=== PATIENT | female | born 1985 | race Hispanic/Latino ===

== ENCOUNTER 2017-10-15 21:12 | Emergency (ER) | payer MEDICAID ==
[2017-10-15 21:31] VITALS: BP 134/83
[2017-10-15] MEDS ORDERED: MOTRIN PO ONE (22:38)
--- NOTE | 2017-10-16 00:08 | XRay Report ---
FINAL REPORT EXAM: XR KNEE 1-2V RT HISTORY: Right knee pain TECHNIQUE: AP and lateral views of the right knee were submitted. FINDINGS: There is no evidence of fracture or soft tissue injury. IMPRESSION: Within normal limits.
--- NOTE | 2017-10-16 00:08 | XRay Report ---
FINAL REPORT EXAM: XR SHOULDER 2+V RT HISTORY: Right shoulder pain TECHNIQUE: Two views of the right shoulder were submitted. FINDINGS: There is no evidence of fracture or soft tissue injury. IMPRESSION: Within normal limits.
[2017-10-16] MEDS ORDERED: PERCOCET 5/325 ONE (00:09)
--- NOTE | 2017-10-16 00:09 | XRay Report ---
FINAL REPORT EXAM: XR FOOT 2V LT HISTORY: Left foot pain TECHNIQUE: AP and lateral views of the left foot were obtained. FINDINGS: There is soft tissue swelling overlying the dorsal aspect of the foot. There is no evidence of fracture or dislocation. IMPRESSION: Soft tissue swelling overlying the dorsal aspect of the foot. No fracture.
--- NOTE | 2017-10-16 00:10 | XRay Report ---
FINAL REPORT EXAM: XR FOREARM RT HISTORY: Right forearm pain TECHNIQUE: AP and lateral views of the right forearm were obtained. FINDINGS: There is an acute intra-articular fracture of the radial head with traumatic elbow joint effusion. No additional fractures are seen. The wrist joint is not show any acute changes. IMPRESSION: Acute nondisplaced intra-articular fracture of the radial head with traumatic joint effusion.
[2017-10-16] MEDS ORDERED: TYLENOL ONE (00:13)
[2017-10-16] MEDS ORDERED: FLEXERIL ONE (00:14)
[2017-10-16] MEDS ORDERED: TYLENOL PO ONE (00:22)
[2017-10-16] MEDS ORDERED: FLEXERIL PO ONE (00:22)
[2017-10-16] MEDS ORDERED: PERCOCET 5/325 PO ONE (00:22)
[2017-10-16] MEDS ORDERED: NORCO 10/325 ONE (01:10)
[2017-10-16] MEDS ORDERED: NORCO 10/325 PO ONE (01:12)
--- NOTE | 2017-10-16 02:15 | Emergency Department Report ---
ED Fall HPI - General Chief Complaint: Fall Stated Complaint: FALL R ARM PAIN Time Seen by Provider: 10/16/17 00:54 Source: patient Mode of arrival: Ambulatory - History of Present Illness MD Complaint: fall Onset/Timin -: hour(s) Fall From: from height (distance) (4) When Fall Occurred: 4-6 hours NURSING HOME DIRECTOR Fall Witnessed: yes, by family Place Fall Occurred: street Loss of Consciousness: none Prolonged Down Time?: no Symptoms Prior to Fall: none Location - Extremities: Right: Elbow, Knee, Ankle Severity: moderate Severity scale (0 -10): 5 Quality: sharp, aching Context: other (fell from roof of car ) Associated Symptoms: denies: headache, neck pain, numbness, weakness, chest paint, shortness of breath, abdominal pain, hematuria, unable to walk, vertigo, confusion - Related Data Previous Rx's Medication Instructions Recorded Last Taken Type traMADol [Ultram 50 MG tab] 50 mg PO Q8HR PRN #15 tablet 10/16/17 Unknown Rx Allergies Allergy/AdvReac Type Severity Reaction Status Date / Time morphine AdvReac Headache Verified 10/15/17 22:56 ED Review of Systems ROS: Stated complaint: FALL R ARM PAIN Other details as noted in HPI Constitutional: denies: chills, fever Eyes: denies: eye pain, eye discharge, vision change ENT: denies: ear pain, throat pain Respiratory: denies: cough, shortness of breath, wheezing Cardiovascular: denies: chest pain, palpitations Endocrine: no symptoms reported Gastrointestinal: denies: abdominal pain, nausea, diarrhea Genitourinary: denies: urgency, dysuria, discharge Musculoskeletal: arthralgia, myalgia Skin: denies: rash, lesions Neurological: denies: headache, weakness, paresthesias Psychiatric: denies: anxiety, depression Hematological/Lymphatic: denies: easy bleeding, easy bruising ED Past Medical Hx - Past Medical History Previous Medical History?: No - Surgical History Hx Cholecystectomy: Yes Additional Surgical History: Tonsiliectomy - Social History Smoking Status: Never Smoker Substance Use Type: None - Medications Home Medications: Home Medications Medication Instructions Recorded Confirmed Last Taken Type traMADol [Ultram 50 MG tab] 50 mg PO Q8HR PRN #15 tablet 10/16/17 Unknown Rx ED Physical Exam - General Limitations: No Limitations General appearance: alert, in no apparent distress - Head Head exam: Present: atraumatic, normocephalic, normal inspection - Eye Eye exam: Present: normal appearance, PERRL, EOMI Pupils: Present: normal accommodation - ENT ENT exam: Present: normal exam, mucous membranes moist - Neck Neck exam: Present: normal inspection, full ROM. Absent: tenderness, thyromegaly - Respiratory Respiratory exam: Present: normal lung sounds bilaterally. Absent: respiratory distress, wheezes, rhonchi, chest wall tenderness - Cardiovascular Cardiovascular Exam: Present: regular rate, normal rhythm, normal heart sounds. Absent: systolic murmur, diastolic murmur, rubs, gallop - GI/Abdominal GI/Abdominal exam: Present: soft, normal bowel sounds. Absent: distended, tenderness, guarding, rebound, rigid, organomegaly, mass, bruit, pulsatile mass , hernia - Rectal Rectal exam: Present: deferred - Extremities Exam Extremities exam: Present: tenderness, normal capillary refill. Absent: pedal edema, joint swelling, calf tenderness - Expanded Upper Extremity Exam Right Elbow exam: Present: tenderness, pain w/ pronation/supination, tenderness over radial head. Absent: swelling, abrasion, laceration, ecchymosis, deformity, crepidus, dislocation, erythema, effusion Forearm Wrist exam: Present: normal inspection, full ROM Hand Wrist exam: Present: normal inspection, full ROM. Absent: tenderness, swelling, abrasion, laceration, ecchymosis, deformity, crepidus, dislocation, erythema, amputation, nail avulsion, subungual hematoma Neuro motor exam: Present: wrist extension intact, thumb opposition intact, thumb IP flexion intact, thumb adduction intact, fingers 2-5 abduction intact Neurosensory exam: Present: 2-point discrimination, radial nerve intact, ulnar nerve intact, median nerve intact Vascular: Present: normal capillary refill, radial pulse, brachial pulse, ulnar pulse. Absent: vascular compromise, Pallo, pulse deficit radial art, pulse deficit ulnar art, pulse deficit brachial art - Expanded Lower Extremity Exam Right Knee exam: Present: normal inspection, full ROM, abrasion (right anterior lateral knee abrasion less than 1 cm ), full knee extension. Absent: tenderness , swelling, laceration, ecchymosis, deformity, crepidus, dislocation, erythema, effusion, pain w/ pronation/supination, posterior draw sign, pain/laxity with varus Lower Leg exam: Present: normal inspection, full ROM. Absent: tenderness, swelling, abrasion, laceration, ecchymosis, deformity, crepidus, dislocation, erythema, palpable cord, Marbella's sign Ankle exam: Present: normal inspection, full ROM. Absent: tenderness, swelling , abrasion, laceration, ecchymosis, deformity, crepidus, dislocation, erythema, anterior draw sign Foot/Toe exam: Present: normal inspection, full ROM, swelling (chronic bilat LE edema no ecchymosis no deformity ). Absent: tenderness, abrasion, laceration, ecchymosis, deformity, crepidus, dislocation, erythema, amputation, puncture wound, foreign body, calcaneal tenderness, tenderness at base of 5th metatarsal , nail avulsion, subungual hematoma Neuro vascular tendon exam: Present: no vascular compromise. Absent: pulse deficit, motor deficit, sensory deficit, tendon deficit, extremity cold to touch ED Course Vital Signs 10/15/17 10/15/17 21:10 22:20 Temperature 98.5 F 98.5 F Pulse Rate 95 H 94 H Respiratory 18 16 Rate Blood Pressure 134/83 134/83 O2 Sat by Pulse 97 100 Oximetry ED Medical Decision Making - Radiology Data Radiology results: report reviewed, image reviewed right closed nondiplased redial head fracture, normal xrays knee and foot - Medical Decision Making This is a closed right radial head fracture nondisplaced range of motion right elbow is restricted by pain there is no swelling no ecchymosis noted deformity radial pulses +2 bilaterally [employer] less than 3 seconds bilaterally patient for a long arm splint and is appropriate for her to finger insertion radial pulses remained +2 patient given splint instructions right knee right ankle no fractures patient does have chronic bilateral lower extremity edema patient is an rheumatoid of baseline gait is steady plan: DC to home Ultram when necessary pain follow-up with orthopedic surgery in 2-3 days upon arrival to home to [place] patient verbalizes understanding and agreement was able be DC'd home in stable condition at this time. Pain is improved to 1/10 Critical care attestation.: If time is entered above; I have spent that time in minutes in the direct care of this critically ill patient, excluding procedure time. ED Disposition Clinical Impression: Closed fracture of head of radius Qualifiers: Encounter type: initial encounter Fracture alignment: nondisplaced Laterality: right Qualified Code(s): S52.124A - Nondisplaced fracture of head of right radius, initial encounter for closed fracture Right ankle strain Qualifiers: Encounter type: initial encounter Qualified Code(s): S96.911A - Strain of unspecified muscle and tendon at ankle and foot level, right foot, initial encounter Abrasion of knee, right Qualifiers: Encounter type: initial encounter Qualified Code(s): S80.211A - Abrasion, right knee, initial encounter Disposition: [id number] HOSPICE- MED FAC Is pt being admited?: No Does the pt Need Aspirin: No Condition: Good Instructions: Ankle Exercises (GEN), Splint Care (ED), Elbow Fracture in Adults (ED) Prescriptions: traMADol [Ultram 50 MG tab] 50 mg PO Q8HR PRN #15 tablet PRN Reason: Pain Referrals: CHERISE SANTOS MD [Staff Physician] - 3-5 Days Forms: Work/School Release Form(ED) Time of Disposition: 02:26
== END 2017-10-16 02:45 | disposition home or self-care (01) ==
LOC: ED 21:12
DX: S52.124A Nondisplaced fracture of head of right radius, initial encounter for closed fracture (principal); S96.911A Strain of unspecified muscle and tendon at ankle and foot level, right foot, initial encounter; S80.211A Abrasion, right knee, initial encounter; Z90.89 Acquired absence of other organs; Z90.49 Acquired absence of other specified parts of digestive tract; Z88.6 Allergy status to analgesic agent; W17.89XA Other fall from one level to another, initial encounter; Y93.89 Activity, other specified; Y99.8 Other external cause status; Y92.410 Unspecified street and highway as the place of occurrence of the external cause